=== PATIENT | female | born 1985 | race Caucasian/White ===

== ENCOUNTER 2019-10-10 06:40 | Inpatient (IN) | payer OTHER ==
[~2019-10-10] VITALS: Ht 162.6 cm; Wt 62.6 kg
[2019-10-10] MEDS ORDERED: PREN-380 PO (06:53)
[2019-10-10] MEDS ORDERED: FERR-252 PO (06:53)
--- NOTE | 2019-10-10 08:18 | NUR ---
PATIENT HAS BEEN SCREENED AND CATEGORIZED LOW NUTRITION RISK. PATIENT WILL BE SEEN WITHIN 7 DAYS OF ADMISSION. 10/16/[address]
[2019-10-10 08:37] VITALS: BP 114/60
[2019-10-10] MEDS: TERBUTALINE 1 MG/ML VIAL SUBQ SCH ×2 (09:13→09:51)
[2019-10-10] MEDS ORDERED: LACTATED RINGERS 1,000 ML IV SCH (10:30)
[2019-10-10] MEDS ORDERED: AMPICILLIN 2,000 MG VIAL ONE (10:50)
[2019-10-10] MEDS ORDERED: AMPICILLIN 2,000 MG in NACL 0.9% MINI-BAG PLUS 100 ML IV SCH (11:00)
[2019-10-10 11:27] LABS: APPEARANCE,URINE SL CLOUDY (CLEAR); BILIRUBIN,URINE NEGATIVE (NEGATIVE); BLOOD, URINE TRACE-I (NEGATIVE); COLOR,URINE YELLOW (YELLOW); LEUKOCYTE ESTERASE ,URINE NEGATIVE (NEGATIVE); NITRITE, URINE NEGATIVE (NEGATIVE); UGLUCOSE NEGATIVE (NEGATIVE)
[2019-10-10 12:56] LABS: RBC,URINE 0-5 /HPF (0-5); WBC,URINE 0-5 /HPF (0-5)
[2019-10-10 13:46] LABS: BASOPHILS % (AUTO) 0.2 % (0.0-2.0); EOSINOPHILS % (AUTO) 0.5 % (0.0-4.0); HEMATOCRIT 37.7 % (36-48); HEMOGLOBIN 13.1 g/dL (12.0-16.0); LYMPHOCYTES # (AUTO) 1.6 K/uL (2.5-16.5); LYMPHOCYTES % (AUTO) 19.3 % (20.5-51.1); MEAN CORPUSCULAR HEMOGLOBIN 32 pg (27-31); MEAN CORPUSCULAR HGB CONC 35 g/dL (33-37); MEAN CORPUSCULAR VOLUME 93.1 fL (80-94); MONOCYTES # (AUTO) 0.4 K/uL (0.8-1.0); MONOCYTES % (AUTO) 4.6 % (1.7-9.3); NEUTROPHILS # (AUTO) 6.2 K/uL (1.8-7.7); NEUTROPHILS % (AUTO) 75.4 % (42.2-75.2); PLATELET COUNT (AUTO) 241 K/uL (140-450); RED BLOOD CELL COUNT(AUTO) 4.04 MIL/uL (4.20-5.40); RED CELL DISTRIBUTION WIDTH 13.4 % (11.6-13.7); WHITE BLOOD COUNT (AUTO) 8.3 K/uL (4.8-10.8)
[2019-10-10] MEDS ORDERED: AMPICILLIN 1,000 MG VIAL ONE ×2 (13:51→17:54)
[2019-10-10] MEDS ORDERED: TERBUTALINE 2.5 MG TAB PO SCH (14:00)
[2019-10-10] MEDS ORDERED: TERBUTALINE 1 MG/ML VIAL SUBQ PRN (14:05)
[2019-10-10] MEDS: AMPICILLIN 1,000 MG in NACL 0.9% MINI-BAG PLUS 50 ML IV SCH ×2 (15:00→18:30)
[2019-10-10] MEDS ORDERED: ceFAZolin 1,000 MG VIAL ONE (20:47)
[2019-10-10] MEDS ORDERED: MORPHINE PRES FREE 10 MG/10 ML AMP IV ONE ×2 (21:16)
[2019-10-10] MEDS ORDERED: KETOROLAC 30 MG/ML VIAL IVP PRN (21:40)
[2019-10-10] MEDS ORDERED: diphenhydrAMINE 50 MG/ML VIAL IVP PRN (21:40)
[2019-10-10] MEDS ORDERED: ONDANSETRON 4 MG/2 ML VIAL IVP PRN ×2 (21:40)
[2019-10-10] MEDS ORDERED: NALBUPHINE 10 MG/ML AMP IVP PRN (21:40)
[2019-10-10] MEDS ORDERED: NALOXONE 0.4 MG/ML VIAL IVP PRN ×3 (21:40)
[2019-10-10] MEDS ORDERED: OXYTOCIN 20 UNITS/LR PREMIX 1,000 ML IV ONE (23:43)
[2019-10-11] MEDS ORDERED: MEASLES, MUMPS, AND RUBELLA 1 VIAL SQVAC PRN (00:15)
[2019-10-11] MEDS ORDERED: HYDROmorphone 1 MG/ML AMP IVP PRN (00:15)
[2019-10-11] MEDS: OXYTOCIN 20 UNITS in LACTATED RINGERS 1,000 ML IV SCH ×3 (02:01→19:41)
[2019-10-11] MEDS ORDERED: OXYTOCIN 20 UNITS/LR PREMIX 1,000 ML IV ONE (19:33)
[2019-10-11] MEDS: KETOROLAC 30 MG/ML VIAL IVP PRN (19:38)
[2019-10-12] MEDS: KETOROLAC 30 MG/ML VIAL IVP PRN ×2 (04:01→17:50)
[2019-10-12 08:41] LABS: BASOPHILS % (AUTO) 0.3 % (0.0-2.0); EOSINOPHILS # (AUTO) 0.1 K/uL (0-0.4); EOSINOPHILS % (AUTO) 0.9 % (0.0-4.0); HEMATOCRIT 33.8 % (36-48); HEMOGLOBIN 11.7 g/dL (12.0-16.0); LYMPHOCYTES # (AUTO) 1.3 K/uL (2.5-16.5); LYMPHOCYTES % (AUTO) 10.8 % (20.5-51.1); MEAN CORPUSCULAR HEMOGLOBIN 32 pg (27-31); MEAN CORPUSCULAR HGB CONC 35 g/dL (33-37); MEAN CORPUSCULAR VOLUME 92.7 fL (80-94); MONOCYTES # (AUTO) 0.5 K/uL (0.8-1.0); MONOCYTES % (AUTO) 4.2 % (1.7-9.3); NEUTROPHILS # (AUTO) 10.3 K/uL (1.8-7.7); NEUTROPHILS % (AUTO) 83.8 % (42.2-75.2); PLATELET COUNT (AUTO) 232 K/uL (140-450); RED BLOOD CELL COUNT(AUTO) 3.64 MIL/uL (4.20-5.40); RED CELL DISTRIBUTION WIDTH 13.5 % (11.6-13.7); WHITE BLOOD COUNT (AUTO) 12.3 K/uL (4.8-10.8)
[2019-10-12] MEDS ORDERED: ACETAMINOPHEN 325 MG TAB PO PRN (22:00)
[2019-10-13] MEDS ORDERED: SODIUM PHOSPHATE 118 ML ENEM RC PRN (00:15)
[2019-10-13] MEDS: BISACODYL 5 MG TABEC PO SCH (09:06)
[2019-10-13] MEDS: DOCUSATE SODIUM 100 MG GELCAP PO SCH (09:06)
[2019-10-13] MEDS: SIMETHICONE 80 MG TAB.CHEW PO SCH (09:07)
[2019-10-13] MEDS: IBUPROFEN 600 MG TAB PO PRN (20:08)
[2019-10-14] MEDS: SIMETHICONE 80 MG TAB.CHEW PO SCH ×3 (08:42→17:25)
[2019-10-14] MEDS: BISACODYL 5 MG TABEC PO SCH (08:42)
[2019-10-14] MEDS: DOCUSATE SODIUM 100 MG GELCAP PO SCH (08:42)
[2019-10-14] MEDS: IBUPROFEN 600 MG TAB PO PRN (12:43)
== END 2019-10-14 20:56 | disposition home or self-care (01) | DRG 540 ==
LOC: MLD 06:40 → OBSVTOIN 10:30 → MFCC 10-11 01:24
PROVIDERS: ADMIT Obstetrics & Gynecology; ATTEND Obstetrics & Gynecology
PROC: 10D00Z1 Extraction of Products of Conception, Low, Open Approach (ICD-10-PCS; principal; 2019-10-10 21:00)
PROC: 3E0234Z Introduction of Serum, Toxoid and Vaccine into Muscle, Percutaneous Approach (ICD-10-PCS; 2019-10-12)
DX: O34.211 Maternal care for low transverse scar from previous cesarean delivery (principal); R71.0 Precipitous drop in hematocrit; Z23 Encounter for immunization; Z37.0 Single live birth; Z3A.37 37 weeks gestation of pregnancy
CPT/HCPCS: G0378 ×4; 36415; 51702; 76815; 81001; 82948; 85025; 86592; 86886; 86900; 86901; 87086; 90715; J0290; J0690; J1885; J2270; J2590; J3105; J7060; J7120; Q0092